=== PATIENT | female | born 1990 | race Caucasian/White ===

== ENCOUNTER → 2017-01-16 | Outpatient (CLI) | payer OTHER ==
--- NOTE | 2017-01-16 10:32 | KCIC ---
MRI left ankle without contrast dated 01/16/2017 8:00 AM Indication: Ankle pain history of prior twisting injury 12/29/2016 difficulty bearing weight. Comparison: No comparison is available. Technique: Routine multiplanar multisequence imaging performed. . Findings: There is an oblique fracture line through the base of the medial malleolus extending to the articular surface of the medial tibial plafond. Patchy edema throughout the distal tibia and medial malleolus. There is also focal edema within the lateral tibial epiphysis with possible subtle hypointense fracture line extending to the articular surface. Focal edema is also noted within the inferior aspect of the talus laterally near the talar head/neck and near the anterior margin of the posterior subtalar joint. The talar dome is intact. No osteochondral defect. Small ankle joint effusion. No loose body. Achilles tendon is intact. Plantar fascia is intact. Flexor and extensor tendons are intact. No apparent abnormality of the peroneus longus or peroneus brevis. Abnormal signal and ill-definition of the anterior talofibular ligament. The posterior talofibular ligament is intact. Abnormal signal and ill-definition of the calcaneofibular ligament. Anterior tibiotalar component of the deltoid ligament complex appears to be disrupted. There is also ill definition of inferior tibiotalar and calcaneal fibers. Tibiofibular ligaments are thickened and of increased signal but otherwise intact. Mild edema along the tibiofibular syndesmosis and flexor hallucis longus muscle. Mild patchy edema throughout the subcutaneous tissues of the ankle. IMPRESSION: 1. Nondisplaced intra-articular oblique fracture through the medial malleolus. 2. Probable additional tiny nondisplaced fracture of the lateral aspect of the distal tibia. 3. Focal areas of bone marrow edema of the talus, bone contusions versus small nondisplaced fractures. 4. High-grade strain of the deltoid ligament complex with complete disruption of the anterior tibiotalar fibers 5. intermediate grade strain of the anterior talofibular ligament and calcaneofibular ligament. Electronically signed by: Luis Antonio Tinajero MD (01/16/2017 10:28 AM) [id number]
== END | disposition home or self-care (01) ==
LOC: KCIC MRI 07:50
PROVIDERS: ATTEND Physician Assistant Medical
DX: S82.55XA Nondisplaced fracture of medial malleolus of left tibia, initial encounter for closed fracture (principal); M25.472 Effusion, left ankle; X58.XXXA Exposure to other specified factors, initial encounter; Y93.89 Activity, other specified; Y92.89 Other specified places as the place of occurrence of the external cause; Y99.8 Other external cause status
CPT/HCPCS: 73721